=== PATIENT | female | born 1985 | race American Indian/Alaskan Native ===

== ENCOUNTER 2020-11-05 20:38 | Emergency (ER) | payer OTHER ==
[2020-11-05 21:08] VITALS: BP 120/80
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
[2020-11-05] MEDS ORDERED: IBUPROFEN 800 MG TAB PO ONE (23:05)
== END 2020-11-05 23:20 | disposition home or self-care (01) ==
LOC: ED 20:38
DX: M79.10 Myalgia, unspecified site (principal); Z79.899 Other long term (current) drug therapy; V49.49XA Driver injured in collision with other motor vehicles in traffic accident, initial encounter; Y93.89 Activity, other specified; Y92.488 Other paved roadways as the place of occurrence of the external cause; Y99.8 Other external cause status
CPT/HCPCS: 99282

== ENCOUNTER 2021-08-10 18:55 | Emergency (ER) | payer OTHER ==
[2021-08-10 23:11] VITALS: BP 156/84
[2021-08-11] MEDS ORDERED: ACETAMINOPHEN 500 MG TAB PO ONE (00:16)
[2021-08-11] MEDS ORDERED: IBUPROFEN 600 MG TAB PO ONE (00:16)
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
== END 2021-08-11 02:38 | disposition home or self-care (01) ==
LOC: ED 18:55
DX: S39.012A Strain of muscle, fascia and tendon of lower back, initial encounter (principal); M62.830 Muscle spasm of back; M54.41 Lumbago with sciatica, right side; G89.29 Other chronic pain; V49.49XA Driver injured in collision with other motor vehicles in traffic accident, initial encounter; Y93.89 Activity, other specified; Y92.89 Other specified places as the place of occurrence of the external cause; Y99.8 Other external cause status
CPT/HCPCS: 72100; 99283

== ENCOUNTER 2022-03-28 07:12 | Day surgery (SDC) | payer OTHER ==
[2022-03-28] MEDS ORDERED: LACTATED RINGERS 1,000 ML ONE (08:00)
--- NOTE | 2022-03-28 08:23 | Anesthesia Consultation ---
Anesthesia Consult and Med Hx Date of service: 03/28/22 - Airway Anesthetic Teeth Evaluation: Good ROM Head & Neck: Adequate Mallampati Class: Class II Intubation Access Assessment: Good - Pulmonary Exam CTA: Yes - Cardiac Exam Cardiac Exam: No Murmur - Pre-Operative Health Status ASA Pre-Surgery Classification: ASA2 Proposed Anesthetic Plan: General - Hematic Hx Anemia: Yes - Other Systems Hx Obesity: Yes
--- NOTE | 2022-03-28 08:23 | Anesthesia Day of Surgery ---
Anesthesia Day of Surgery - Day of Surgery Patient H&P Reviewed: Yes Patient is NPO: Yes
[2022-03-28] MEDS ORDERED: HYDROmorphone 1 MG/1 ML INJ ONE (08:38)
[2022-03-28] MEDS ORDERED: fentaNYL 100 MCG/2 ML INJ ONE (08:38)
[2022-03-28] MEDS ORDERED: propofoL 200 MG/20 ML VIAL IV ONE ×3 (08:38→10:16)
[2022-03-28] MEDS ORDERED: FAMOTIDINE 20 MG TAB PO NR (09:00)
[2022-03-28] MEDS ORDERED: LACTATED RINGERS 1,000 ML IV SCH (09:00)
[2022-03-28] MEDS ORDERED: MIDAZOLAM 2 MG/2 ML INJ IV NR (09:00)
[2022-03-28] MEDS ORDERED: DOXYCYCLINE HYCLATE 100 MG in SODIUM CHLORIDE 0.9% 250ML 250 ML IV ONE (09:30)
[2022-03-28] MEDS ORDERED: SODIUM CHLORIDE 0.9% IRRIG SOLN 2000 ML IR ONE (09:33)
[2022-03-28] MEDS ORDERED: SILVER NITRATE APPLICATOR 1 EA TP ONE (09:41)
--- NOTE | 2022-03-28 10:25 | Procedure Note ---
Date of procedure: 03/28/22 Pre-op diagnosis: menometrorrhagia, morbid obesity Post-op diagnosis: same Procedure: Exam under anesthesia, Hysteroscopy and dilatation and curettage After the risks, benefits and alternatives of procedure discussed, pt signed consents and was taken to the OR via stretcher. Pt was given general anesthesia, prepped and draped and time out done. Pt placed in Dorsal lithotomy position and bladder emptied of 200cc concentrated urine. bimanual exam done and same limited due to patient habitus. Speculum placed to the vagina and single tooth tenaculum placed on the anterior lip of the cervix. Cervix dilated to 20mm and hysteroscope using normal saline fluid gently advanced to the fundus and cavity viewed completely fluffy and no definitive polyp seen. The ostia to right and left to view slightly obscured by fluffy endometrium. Attempted to sample with polyp forceps but this was not successful, therefore scope removed. Sharp curettage done to cervix, then a different curette used for the endometrial cavity and both samples sent to pathology The tenaculum was removed and no bleeding noted to the site and silver nitrate x1 stick placed for prophylaxis to both sites. The speculum was then removed and the pt placed flat, extubated and taken to recovery room Hysteroscopic fluid deficit was 200cc normal saline Urine output: 200cc concentrated urine Intake: 200cc crytalloids EBL: minimal Findings: Exam under anesthesia with limited bimanual due to habitus and no adnexal mass palpated. Hysteroscopic view of cavity with fluffy endometrium throughout and no definitive polyp seen. Both ostia was slightly obscured by fluffy endometrium. Anesthesia: GETA Surgeon: GRACIELA ARORA Estimated blood loss: minimal Pathology: list (endocervical and endometrial curettings) Specimen disposition: to lab Condition: stable Disposition: floor
--- NOTE | 2022-03-28 10:46 | Discharge Summary ---
Providers - Providers Date of discharge: 03/28/22 Attending physician: GRACIELA ARORA Primary care physician: GRACIELA ARORA Hospitalization Reason for admission: other (menometrorrhagia, morbid obesity) Procedure: other Laceration: none complications: none Discharge diagnosis: other (menometrorrhagia) Hospital course: [employer] same day case for hysteroscopy, dilatation and curettage with exam under anesthesia done uncomplicated and pt discharge home the same day. Condition at discharge: Good Disposition: 01 HOME / SELF CARE / HOMELESS - Discharge Diagnoses (1) Menometrorrhagia Status: Acute (2) Morbid obesity Status: Acute Plan - Discharge Medications Prescriptions: Ibuprofen [Motrin] 800 mg PO Q8HR PRN 21 Days #40 tablet PRN Reason: Pain, Moderate (4-6) oxyCODONE /ACETAMINOPHEN [Percocet 5/325] 1 tab PO Q4HR PRN 21 Days #30 tab PRN Reason: Pain , Severe (7-10) - Provider Discharge Summary Additional instructions: [] Smoking cessation referral if applicable(refer to patient education folder for contact #) [] Refer to [facility] Booklet Call your doctor immediately for: * Fever > 100.5 * Heavy vaginal bleeding ( >1 pad per hour) * Severe persistent headache * Shortness of breath * Reddened, hot, painful area to leg or breast * Drainage or odor from incision. * Keep incision clean and dry at all times and follow doctor's instructions regarding bathing/showering - Follow up plan Follow up: GRACIELA ARORA MD [Primary Care Provider] - 7 Days
[2022-03-28 12:49] VITALS: BP 128/79
--- NOTE | 2022-03-28 16:33 | Post Anesthesia Evaluation ---
- Post Anesthesia Evaluation Patient Participated: Yes Airway Patent: Yes Stable Respiratory Function: Yes Nausea/Vomiting: No Temp > 96.8F: Yes Pain Manageable: Yes Adequeate Hydration: Yes Anesthesia Complications: No
== END 2022-03-28 11:30 | disposition home or self-care (01) ==
LOC: OR 07:12
PROVIDERS: ATTEND Obstetrics & Gynecology
DX: N92.1 Excessive and frequent menstruation with irregular cycle (principal); E66.01 Morbid (severe) obesity due to excess calories; Z79.899 Other long term (current) drug therapy; Z68.42 Body mass index [BMI] 45.0-49.9, adult; D64.9 Anemia, unspecified
CPT/HCPCS: 58558; 81025; 88305; J2704; J3010; J3490; J7050; J7120; J1170